=== PATIENT | female | born 1960 | race Caucasian/White ===

== ENCOUNTER 2017-08-09 09:38 | Outpatient (CLI) | payer SELFPAY ==
--- NOTE | 2017-08-09 14:58 | MMO ---
BILATERAL SCREENING MAMMOGRAM: Date: 08/09/17 INDICATION: Annual exam. COMPARISON: None. No comparisons are available. This is the patient's baseline examination for [facility]. FINDINGS: Interpretation of this exam was assisted with computer-aided detection. There are scattered fibroglandular elements bilaterally. There are benign scattered densities within the right and left breast. There are benign-appearing sigifredo cifications bilaterally. No suspicious mass, cluster of microcalcifications, or area of architectural distortion is evident. IMPRESSION: BIRADS 2: Benign Finding(s) Recommend routine annual mammographic screening. POS: [facility]
== END 2017-08-09 09:39 | disposition home or self-care (01) ==
LOC: SCSMAMMO 09:38
PROVIDERS: ATTEND Physician Assistant
DX: Z12.31 Encounter for screening mammogram for malignant neoplasm of breast (principal)
CPT/HCPCS: 77067

== ENCOUNTER 2018-01-24 14:37 | Outpatient (CLI) | payer OTHER | END 2018-01-24 14:38 | disposition home or self-care (01) | LOC: BICRAD 14:37 | PROVIDERS: ATTEND Physician Assistant | DX: R06.02 Shortness of breath (principal) | CPT/HCPCS: 71046 ==